=== PATIENT | male | born 1980 | race African-American/Black ===

== ENCOUNTER 2021-09-26 00:35 | Outpatient (CLI) | payer MEDICAID | END 2021-09-26 00:36 | disposition critical access hospital (66) | LOC: EMS 00:35 | DX: H57.11 Ocular pain, right eye (principal); X58.XXXA Exposure to other specified factors, initial encounter; M79.89 Other specified soft tissue disorders; M25.541 Pain in joints of right hand | CPT/HCPCS: A0425; A0429; A0999 ==

== ENCOUNTER 2021-09-26 00:55 | Emergency (ER) | payer MEDICAID ==
[2021-09-26] MEDS ORDERED: PROPARACAINE 0.5% OPHTH DROPS 15 ML RIGHTEYE STA (01:08)
[2021-09-26] MEDS ORDERED: fentaNYL 100 MCG/2 ML VIAL IVP STA ×2 (01:29→05:51)
[2021-09-26] MEDS ORDERED: TETANUS/DIPHTHERIA/PERTUSSIS 0.5 ML SYRINGE IM ONE (01:29)
[2021-09-26 01:37] LABS: BASOPHILS # (AUTO) 0.1 10^3/uL (0.0-0.1); BASOPHILS % (AUTO) 0.4 %; EOSINOPHILS # (AUTO) 0.2 10^3/uL (0.0-0.7); EOSINOPHILS % (AUTO) 1.5 %; HCT - HEMATOCRIT 41.8 % (42.0-52.0); HGB - HEMOGLOBIN 13.8 g/dL (14.0-18.0); LYMPHOCYTES # (AUTO) 2.4 10^3/uL (1.5-3.5); LYMPHOCYTES % (AUTO) 18.3 %; MEAN CORPUSCULAR HEMOGLOBIN 27.4 pg (27.0-31.0); MEAN CORPUSCULAR VOLUME 83.1 fL (80.0-94.0); MEAN PLATELET VOLUME 10.4 fL (7.4-11.4); MONOCYTES % (AUTO) 7.8 %; NEUTROPHILS # (AUTO) 9.4 10^3/uL (1.5-6.6); NEUTROPHILS % (AUTO) 71.8 %; PLT - PLATELET COUNT 243 10^3/uL (130-450); RED BLOOD COUNT 5.03 10^6/uL (4.70-6.10); RED CELL DISTRIBUTION WIDTH 13.2 % (12.0-15.0); WHITE BLOOD COUNT 13.1 x10^3/uL (4.8-10.8)
[2021-09-26 01:46] LABS: ALBUMIN/GLOBULIN RATIO 1.1 (1.0-2.2); ALKALINE PHOSPHATASE 76 IU/L (42-121); ALT ALANINE AMINOTRANSFERASE 48 IU/L (10-60); AST ASPARTATE AMINOTRANSFERASE 49 IU/L (10-42); BILIRUBIN,TOTAL < 0.2 mg/dL (0.2-1.0); BUN - BLOOD UREA NITROGEN 15 mg/dL (6-20); CALCIUM 8.9 mg/dL (8.5-10.3); CARBON DIOXIDE - CO2 26 mmol/L (21-32); CHLORIDE 101 mmol/L (101-111); CREATININE 1.1 mg/dL (0.6-1.2); ETOH - ETHANOL < 5.0 mg/dL; GFR - MDRD 90 (>89); GLUCOSE 114 mg/dL (70-100); POTASSIUM 3.4 mmol/L (3.5-5.0); SODIUM 136 mmol/L (135-145); TOTAL PROTEIN 7.5 g/dL (6.7-8.2)
[2021-09-26] MEDS ORDERED: VANCOMYCIN INJ 1.5 GM in SODIUM CHLORIDE 0.9% 500 ML IV ONE (03:00)
[2021-09-26] MEDS ORDERED: cefTAZidime 2 GM in SODIUM CHLORIDE 0.9% MINIBAG 100 ML IV ONE (03:00)
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
[2021-09-26] MEDS ORDERED: predniSONE 20 MG TABLET PO STA (04:16)
[2021-09-26 05:16] VITALS: BP 116/60
[2021-09-26] MEDS ORDERED: ONDANSETRON 4 MG/2 ML VIAL IVP STA (05:52)
--- NOTE | 2021-09-26 08:13 | CT Report ---
PROCEDURE: HEAD WO INDICATIONS: trauma TECHNIQUE: Noncontrast 4.5 mm thick angled axial sections acquired from the foramen magnum to the vertex. For r adiation dose reduction, the following was used: automated exposure control, adjustment of mA and/or kV according to patient size. COMPARISON: CT orbits 09/26/2021 FINDINGS: Image quality: Excellent. CSF spaces: Basal cisterns are patent. No extra-axial fluid collections. Ventricles are normal in size and shape. Brain: No midline shift. No intracranial masses or hemorrhage. [place]-white matter interface is norm al. Skull and face: Calvarium and visualized facial bones are intact, without suspicious lesions. There is a 3 mm metallic appearing foreign body within the lateral aspect of the right globe this is in th e anterior inferior corner. Minimal surrounding air is noted. Preseptal soft tissue edema is present. There is no visualized lobe collapse. There is no apparent lens dislocation. No visualized orbital f racture. Sinuses: Visualized sinuses and mastoids are clear. IMPRESSION: No acute intercranial process. Metallic foreign body within the right globe as described above without evidence of globe rupture or lens dislocation. Preseptal soft tissue edema is present. The above findings are concordant with preliminary report. Reviewed by: Kellen Wilcox MD on 09/26/2021 8:11 AM PDT Approved by: Kellen Wilcox MD on 09/26/2021 8:11 AM PDT Station ID: [id number]
--- NOTE | 2021-09-26 08:15 | CT Report ---
PROCEDURE: ORBITS WO INDICATIONS: R eye pain s/p trauma, ?globe rupture TECHNIQUE: Noncontrast 2.0 mm axial images acquired through the orbits. For radiation dose reduction, the follo wing was used: automated exposure control, adjustment of mA and/or kV according to patient size. COMPARISON: CT head 09/26/2021 FINDINGS: Image quality: Excellent. Orbits: Right preseptal soft tissue edema is present. There is a metallic foreign body density identi fied within the right globe in the anterior inferior quadrant. There is no evidence of globe rupture or lens dislocation. There is no osseous fracture. The optic nerves are normal in size. No retrobulb ar masses or fat abnormalities. The extra-ocular muscles are normal and symmetrical in appearance. Lacrimal glands are normal in size. Optic chiasm is normal. Intracranial: Visualized portions of the cerebral hemispheres, brainstem, and spinal cord are normal . Bones and sinuses: Visualized calvarium and facial bones appear intact. Visualized sinuses demonstr ate moderate ethmoid mucosal thickening. Scattered mild to moderate areas of mucosal thickening are p resent within the frontal and maxillary sinuses, minimal in the sphenoid sinuses. IMPRESSION: 3 mm right globe radiodensity as described above without evidence of globe rupture or lens dislocatio n. No osseous fracture is identified. Scattered areas of mild to moderate pansinus mucosal thickening. The above findings are concordant with preliminary report. Reviewed by: Kellen Wilcox MD on 09/26/2021 8:14 AM PDT Approved by: Kellen Wilcox MD on 09/26/2021 8:14 AM PDT Station ID: [id number]
--- NOTE | 2021-09-26 08:16 | XRAY Report ---
PROCEDURE: Hand 3 View RT INDICATIONS: 4th digit pain/infection TECHNIQUE: 3 views of the hand(s) acquired. COMPARISON: None FINDINGS: Bones: No acute fractures or dislocations. Old healed fifth metacarpal fracture is noted. No suspici ous bony lesions. Soft tissues: No suspicious soft tissue calcifications. Prominent soft tissue edema is present surr ounding the fourth digit. No radiopaque foreign body. IMPRESSION: Fourth digit soft tissue edema without visualized fracture. Appearance is suggestive of infection or inflammation such as cellulitis. Recommend direct visualization and clinical correlation. The above findings are concordant with preliminary report. Reviewed by: Kellen Wilcox MD on 09/26/2021 8:15 AM PDT Approved by: Kellen Wilcox MD on 09/26/2021 8:15 AM PDT Station ID: [id number]
== END 2021-09-26 06:20 | disposition short-term general hospital (02) ==
LOC: EDUNIT# → ED 00:55
DX: S05.8X1A Other injuries of right eye and orbit, initial encounter (principal); W20.8XXA Other cause of strike by thrown, projected or falling object, initial encounter; L08.9 Local infection of the skin and subcutaneous tissue, unspecified; Z20.822 Contact with and (suspected) exposure to COVID-19
CPT/HCPCS: 36415; 70450; 70480; 73130; 80053; 80320; 85025; 87635; 90471; 90715; 96365; 96366; 96368; 96375; 96376; 99285; 99291; J3370; J3490

== ENCOUNTER 2021-11-27 16:14 | Outpatient (CLI) | payer OTHER ==
[2021-11-27 16:25] LABS: BILIRUBIN,URINE NEGATIVE (NEGATIVE); GLUCOSE, URINE (UA) NEGATIVE (NEGATIVE); KETONES,URINE (UA) NEGATIVE (NEGATIVE); LEUKOCYTE ESTERASE, URINE NEGATIVE (NEGATIVE); NITRITE,URINE NEGATIVE (NEGATIVE); OCCULT BLOOD,URINE NEGATIVE (NEGATIVE); PH,URINE 6.5 PH (5.0-7.5); PROTEIN,URINE NEGATIVE (NEGATIVE); UROBILINOGEN,URINE 1 (NORMAL) E.U./dL (NORMAL)
[2021-11-27 16:31] LABS: CLARITY,URINE CLEAR (CLEAR)
[2021-11-27 23:30] LABS: CHLAMYDIA TRACHOMATIS DNA NEGATIVE (NEGATIVE); NEISSERIA GONORRHOEAE DNA NEGATIVE (NEGATIVE)
== END 2021-11-27 16:15 | disposition home or self-care (01) ==
LOC: LAB.R 16:14
PROVIDERS: ATTEND Registered Nurse
DX: R82.79 Other abnormal findings on microbiological examination of urine (principal); Z11.3 Encounter for screening for infections with a predominantly sexual mode of transmission
CPT/HCPCS: 81001; 81003; 87086; 87491; 87591; 87661